=== PATIENT | male | born 1995 | race Caucasian/White ===

== ENCOUNTER 2019-02-12 16:02 | Emergency (ER) | payer OTHER ==
[2019-02-12 16:46] LABS: BASOPHILS # (AUTO) 0.1 10^3/uL (0.0-0.1); EOSINOPHILS # (AUTO) 0.6 10^3/uL (0.0-0.7); EOSINOPHILS % (AUTO) 7.9 %; HGB - HEMOGLOBIN 14.5 g/dL (14.0-18.0); LYMPHOCYTES # (AUTO) 2.8 10^3/uL (1.5-3.5); LYMPHOCYTES % (AUTO) 36.5 %; MEAN CORPUSCULAR HEMOGLOBIN 28.2 pg (27.0-31.0); MEAN CORPUSCULAR VOLUME 85.4 fL (80.0-94.0); MEAN PLATELET VOLUME 9.3 fL (7.4-11.4); MONOCYTES # (AUTO) 0.4 10^3/uL (0.0-1.0); MONOCYTES % (AUTO) 5.8 %; NEUTROPHILS # (AUTO) 3.7 10^3/uL (1.5-6.6); NEUTROPHILS % (AUTO) 48.8 %; PLT - PLATELET COUNT 261 10^3/uL (130-450); RED BLOOD COUNT 5.15 10^6/uL (4.70-6.10); WHITE BLOOD COUNT 7.6 x10^3/uL (4.8-10.8)
[2019-02-12 16:59] LABS: ALBUMIN 5.1 g/dL (3.2-5.5); ALBUMIN/GLOBULIN RATIO 1.5 (1.0-2.2); BILIRUBIN,TOTAL 0.8 mg/dL (0.2-1.0); CALCIUM 9.8 mg/dL (8.5-10.3); CREATININE 0.9 mg/dL (0.6-1.2); TOTAL PROTEIN 8.4 g/dL (6.7-8.2)
--- NOTE | 2019-02-12 17:22 | ED Physician Documentation ---
PD HPI CHEST PAIN - Stated complaint Stated Complaint: CHEST PAIN - Chief complaint Chief Complaint: Cardiac - History obtained from History obtained from: Patient - History of Present Illness Timing - onset: Yesterday Timing - onset during: Light activity (he noted onset of sternal area pain yesterday. [place] Had been eating snack food and sodas for the ride. Denies leg pains. No dyspnea. Pain is not pleuritic. Pain intermittent, and seems to increase with lying on side and bending forward. Best sitting up.) Timing - duration: Days (11/20) Timing - details: Gradual onset, Waxing and waning Quality: Aching, Sharp. No: Pressure Location: Substernal Radiation: Back, Left upper extremity (left arm has some pain in shoulder and intermittent tingling in fingers when he lifts arm. Uses left arm mostly for d riving.) Worsened by: Position. No: Exertion, Inspiration Associated symptoms: No: Shortness of air, Nausea, Feeling faint / dizzy, Palpitations Similar symptoms before: Has not had sx before Recently seen: Not recently seen Review of Systems Constitutional: denies: Fever Nose: denies: Rhinorrhea / runny nose, Congestion Throat: denies: Sore throat Respiratory: denies: Cough GI: denies: Abdominal Pain, Vomiting, Diarrhea Neurologic: denies: Generalized weakness, Focal weakness, Numbness, Near syncope PD PAST MEDICAL HISTORY - Past Medical History Cardiovascular: None Respiratory: None Musculoskeletal: Other - Past Surgical History Past Surgical History: No - Present Medications Home Medications: Ambulatory Orders Medication Instructions Recorded Confirmed Ondansetron Odt [Zofran] 4 mg TL Q6H PRN #10 tablet 06/16/15 02/12/19 Famotidine 20 mg PO BID #30 tablet 02/12/19 Lidocaine Viscous 2% [Xylocaine 5 ml PO Q4H PRN #100 ml 02/12/19 Viscous 2%] - Allergies Allergies/Adverse Reactions: Allergies Allergy/AdvReac Type Severity Reaction Status Date / Time No Known Drug Allergies Allergy Verified 02/12/19 16:11 - Social History Does the pt smoke?: No Smoking Status: Never smoker Does the pt drink ETOH?: No Does the pt have substance abuse?: No - Family History Family history: reports: CAD. denies: Sudden , Venous thromboembolism - Immunizations Immunizations are current?: Yes - POLST Patient has POLST: No PD ED PE NORMAL - Vitals Vital signs reviewed: Yes - General General: Alert and oriented X 3, No acute distress, Well developed/nourished - HEENT HEENT: Pharynx benign - Neck Neck: Supple, no meningeal sign, No adenopathy - Cardiac Cardiac: RRR, No murmur - Respiratory Respiratory: Clear bilaterally - Abdomen Abdomen: Soft, Non tender - Derm Derm: Normal color, Warm and dry - Extremities Extremities: No tenderness to palpate, Normal ROM s pain, No edema, No calf tenderness / cord - Neuro Neuro: Alert and oriented X 3, No motor deficit, Normal speech Results - Vitals Vitals: Oxygen O2 Source Room air - EKG (time done) 16:21 Rate: Rate (enter#) (71) Rhythm: NSR [place]: Normal Intervals: Normal NC QRS: Normal Ischemia: Normal ST segments. No: ST elevation c/w ischemia, ST depression - Labs Labs: Laboratory Tests 02/12/19 02/12/19 02/12/19 16:35 16:41 16:41 WBC 7.6 RBC 5.15 Hgb 14.5 Hct 44.0 MCV 85.4 MCH 28.2 MCHC 33.0 RDW 14.0 Plt Count 261 MPV 9.3 Neut # (Auto) 3.7 Lymph # (Auto) 2.8 [place] # (Auto) 0.4 Eos # (Auto) 0.6 Baso # (Auto) 0.1 Absolute Nucleated RBC 0.00 Nucleated RBC % 0.0 Sodium 141 Potassium 4.0 Chloride 103 Carbon Dioxide 29 Anion Gap 9.0 BUN 10 Creatinine 0.9 Estimated GFR (MDRD) 104 Glucose 100 Calcium 9.8 Total Bilirubin 0.8 AST 15 ALT 21 Alkaline Phosphatase 70 Troponin I < 0.04 Total Protein 8.4 H Albumin 5.1 Globulin 3.3 Albumin/Globulin Ratio 1.5 Lipase 32 - Rads (name of study) chest xray Radiology: See rad report PD MEDICAL DECISION MAKING - ED course Complexity details: considered differential (good improvement with GI cocktail. Normal ECG, labs, and CXR. No leg edema nor calf tendeerness. ), d/w patient Departure - Departure Disposition: 01 Home, Self Care Clinical Impression: Esophagitis Chest pain Qualifiers: Chest pain type: precordial pain Qualified Code(s): R07.2 - Precordial pain Condition: Stable Record reviewed to determine appropriate education?: Yes Instructions: ED GERD Prescriptions: Famotidine 20 mg PO BID #30 tablet Lidocaine Viscous 2% [Xylocaine Viscous 2%] 5 ml PO Q4H PRN #100 ml PRN Reason: Pain Comments: Avoid caffeine, alcohol, spicy foods as these increase stomach acids. Does sound like your pain is caused by an irritation of the stomach and end of the esophagus. This typically will heal up pretty well with some acid reducing medicine and decreasing irritation and symptom medicines in the short-term of antacids and added lidocaine if needed. Recheck if not improved over the next several days or so. Resume normal diet after a week or so if you are feeling all better. Discharge Date/Time: 02/12/19 18:41
[2019-02-12] MEDS ORDERED: MAG HYDROX/AL HYDROX/SIMETH 30 ML UDC PO STA (17:48)
[2019-02-12] MEDS ORDERED: LIDOCAINE VISCOUS 2% 15 ML UDC MM STA (17:48)
[2019-02-12] MEDS ORDERED: FAMOTIDINE 20 MG TABLET PO STA (18:33)
[2019-02-12 18:41] VITALS: BP 130/78
== END 2019-02-12 18:41 | disposition home or self-care (01) ==
LOC: ED 16:02
DX: K20.9 Esophagitis, unspecified (principal); R07.2 Precordial pain; Z82.49 Family history of ischemic heart disease and other diseases of the circulatory system
CPT/HCPCS: 36415; 80053; 83690; 84484; 85025; 93005; 99283; 99284; A9270